=== PATIENT | female | born 1955 | race Caucasian/White ===

== ENCOUNTER 2020-07-21 09:26 | Emergency (ER) | payer MEDICARE ==
[2020-07-21 10:22] LABS: #Basophils 0.1 thou/uL (0.0-0.2); #Eosinphils 0.1 thou/uL (0.0-0.7); #Lymphocytes 2.2 thou/uL (1.20-3.40); #Monocytes 0.6 thou/uL (0.11-0.59); #Neutrophils 4.9 thou/uL (1.40-6.50); %Eosinophils 1.4 % (0.0-10.0); %Monocytes 7.5 % (0.0-10.0); %Neutrophils 62.1 % (42.0-75.0); Hemoglobin 12.8 g/dL (12.0-16.0); Mean Corpuscular Hemoglobin 30.8 pg (27.0-31.0); Mean Corpuscular Volume 93.3 fL (78.0-98.0); Mean Platelet Volume 8.1 fL (7.4-10.4); Platelet Count 202 thou/uL (130-400); RBC Distribution Width 11.3 % (11.5-14.5); Red Blood Cell (RBC) Count 4.15 mill/uL (4.20-5.40); White Blood Cell (WBC) Count 7.8 thou/uL (4.8-10.8)
[2020-07-21 10:47] LABS: ALT (SGPT) 47 U/L (8-55); AST (SGOT) 31 U/L (5-34); Acetaminophen Less than 6.0 mcg/mL (10.0-30.0); Alcohol 18 mg/dL (Less than 10); Alkaline Phosphatase 72 U/L (40-110); Anion Gap 16 mmol/L (10-20); BUN (Urea Nitrogen) 9 mg/dL (9.8-20.1); Bilirubin, Total 0.3 mg/dL (0.2-1.2); CK (CPK) 61 U/L (29-168); Calc. Creatinine Clearance 0 mL/min (70-130); Calcium 9.2 mg/dL (7.8-10.44); Carbon Dioxide 22 mmol/L (23-31); Chloride 105 mmol/L (98-107); Globulin 3.4 g/dL (2.4-3.5); Glucose 88 mg/dL (80-115); Potassium 3.3 mmol/L (3.5-5.1); Protein, Total 7.4 g/dL (6.0-8.3); Salicylate Less than 8.0 mg/dL (15.0-30.0); Sodium 140 mmol/L (136-145)
--- NOTE | 2020-07-21 10:47 | CT ---
EXAM: Brain CTWithout contrast: HISTORY: Altered mental status COMPARISON: None FINDINGS: No focal mass or midline shift. No intra or extra-axial hemorrhage. Sinuses and mastoids are clear of acute process. IMPRESSION: No mass or bleed or other significant acute intracranial process.
[2020-07-21 11:10] LABS: Amphetamine Not Detected (NotDetected); Barbiturates Screen Not Detected (NotDetected); Benzodiazepine Screen Not Detected (NotDetected); Cocaine Metabolite Screen Not Detected (NotDetected); Medtox Control Line Valid? VALID (VALID); Medtox Reader # READER 4; Methadone Not Detected (NotDetected); Methamphetamine Not Detected (NotDetected); Opiate Screen Not Detected (NotDetected); Oxycodone Screen Not Detected (NotDetected); Phencyclidine (PCP) Not Detected (NotDetected); THC/Cannabinoid Screen Not Detected (NotDetected); Tricyclic Screen Not Detected (NotDetected)
[2020-07-21 11:11] LABS: Bilirubin Negative (Negative); Blood, Urine Negative (Negative); Clarity Clear (Clear); Glucose, Urine (Dipstick) Normal (Negative); Ketone, Urine Negative (Negative); Leukocyte Negative Leu/uL (Negative); Nitrite Negative (Negative); Protein, Urine (Dipstick) Negative (Neg-Trace); Specific Gravity, Urine 1.011 (1.002-1.036); Urobilinogen Normal mg/dL (Less than 2); pH, Urine 5.5 (5.0-9.0)
[2020-07-21] MEDS ORDERED: Nicotine 14 MG PATCH TOP SCH (12:00)
[2020-07-21] MEDS ORDERED: Nicotine 14 MG PATCH ONE ×2 (12:31→12:32)
== END 2020-07-21 18:35 ==
LOC: ERS 09:26
DX: F23 Brief psychotic disorder (principal); J44.9 Chronic obstructive pulmonary disease, unspecified; F17.210 Nicotine dependence, cigarettes, uncomplicated; Z79.899 Other long term (current) drug therapy
CPT/HCPCS: 36415; 70450; 80053; 80306; 80307; 81003; 82550; 84443; 85025; 93005

== ENCOUNTER 2020-10-15 22:33 | Emergency (ER) | payer MEDICARE ==
[2020-10-15 23:38] LABS: #Basophils 0.1 thou/uL (0.0-0.2); #Eosinphils 0.3 thou/uL (0.0-0.7); #Lymphocytes 2.4 thou/uL (1.20-3.40); #Monocytes 0.5 thou/uL (0.11-0.59); #Neutrophils 1.7 thou/uL (1.40-6.50); %Basophils 1.5 % (0.0-1.0); %Eosinophils 5.2 % (0.0-10.0); %Monocytes 9.8 % (0.0-10.0); %Neutrophils 34.5 % (42.0-75.0); Hemoglobin 12.7 g/dL (12.0-16.0); Mean Corpuscular HGB CONC 32.7 g/dL (32.0-36.0); Mean Corpuscular Hemoglobin 31.5 pg (27.0-31.0); Mean Corpuscular Volume 96.4 fL (78.0-98.0); Mean Platelet Volume 7.1 fL (7.4-10.4); Platelet Count 179 thou/uL (130-400); RBC Distribution Width 11.5 % (11.5-14.5); Red Blood Cell (RBC) Count 4.04 mill/uL (4.20-5.40); White Blood Cell (WBC) Count 4.9 thou/uL (4.8-10.8)
[2020-10-15 23:59] LABS: ALT (SGPT) 74 U/L (8-55); AST (SGOT) 54 U/L (5-34); Acetaminophen Less than 6.0 mcg/mL (10.0-30.0); Albumin 3.8 g/dL (3.4-4.8); Alcohol 135 mg/dL (Less than 10); Alkaline Phosphatase 55 U/L (40-110); Anion Gap 12 mmol/L (10-20); BUN (Urea Nitrogen) 8 mg/dL (9.8-20.1); Bilirubin, Total 0.3 mg/dL (0.2-1.2); Calc. Creatinine Clearance 0 mL/min (70-130); Calcium 8.3 mg/dL (7.8-10.44); Carbon Dioxide 27 mmol/L (23-31); Chloride 106 mmol/L (98-107); Globulin 2.8 g/dL (2.4-3.5); Glucose 88 mg/dL (80-115); Potassium 3.7 mmol/L (3.5-5.1); Protein, Total 6.6 g/dL (5.8-8.1); Salicylate Less than 8.0 mg/dL (15.0-30.0); Sodium 141 mmol/L (136-145)
== END 2020-10-16 02:27 | disposition home or self-care (01) ==
LOC: ERS 22:33
DX: F10.129 Alcohol abuse with intoxication, unspecified (principal); J44.9 Chronic obstructive pulmonary disease, unspecified; F17.210 Nicotine dependence, cigarettes, uncomplicated; Z79.899 Other long term (current) drug therapy
CPT/HCPCS: 36415; 80053; 80307; 85025; 99285

== ENCOUNTER 2024-05-30 17:49 | Inpatient (IN) | payer MEDICARE ==
[2024-05-30] MEDS ORDERED: Proparacaine 0.5% Opth 15 ML BOT ONE (18:34)
[2024-05-30] MEDS ORDERED: Fluorescein Opthalmic Strip ONE (18:34)
[2024-05-30] MEDS ORDERED: Sodium Chloride 0.9% 100 ML ONE (18:34)
[2024-05-30] MEDS ORDERED: Cefepime 2 GM VIAL ONE (18:34)
[2024-05-30] MEDS ORDERED: Vancomycin 1 GM/200 ML (FROZEN) BAG ONE (19:02)
[2024-05-30 19:46] LABS: #Basophils 0.07 10x3/uL (0.0-0.2); %Eosinophils 0.9 % (0.0-10.0); %Lymphocytes 23.9 % (21.0-51.0); %Monocytes 9.9 % (0.0-10.0); %Neutrophils 63.9 % (42.0-75.0); Hematocrit 39.3 % (36.0-47.0); Mean Corpuscular HGB CONC 35.6 g/dL (32.0-36.0); Mean Corpuscular Hemoglobin 31.5 pg (27.0-31.0); Mean Corpuscular Volume 88.3 fL (78.0-98.0); Mean Platelet Volume 9.2 fL (7.4-10.4); Platelet Count 251 10x3/uL (130-400); RBC Distribution Width 13.8 % (11.5-14.5); Red Blood Cell (RBC) Count 4.45 mill/uL (4.20-5.40)
[2024-05-30 19:56] LABS: ALT (SGPT) 21 U/L (8-55); AST (SGOT) 19 U/L (5-34); Albumin 3.3 g/dL (3.4-4.8); Alkaline Phosphatase 52 U/L (40-110); Anion Gap 12 mmol/L (10-20); BUN (Urea Nitrogen) 5 mg/dL (9.8-20.1); Bilirubin, Total 0.4 mg/dL (0.2-1.2); CK (CPK) 31 U/L (29-168); Calc. Creatinine Clearance 0 mL/min (70-130); Calcium 9.1 mg/dL (7.8-10.44); Carbon Dioxide 33 mmol/L (23-31); Chloride 84 mmol/L (98-107); Estimated GFR 100; Globulin 2.7 g/dL (2.4-3.5); Glucose 95 mg/dL (80-115); Sodium 126 mmol/L (136-145)
[2024-05-30 20:00] LABS: Troponin I 0.012 ng/mL (< 0.028)
[2024-05-30] MEDS ORDERED: Ondansetron ODT 4 MG TAB PO PRN (20:30)
[2024-05-30] MEDS ORDERED: Calcium Carbonate 500 MG ChewTAB PO PRN (20:30)
[2024-05-30] MEDS ORDERED: Senokot S 8.6-50 MG TAB PO PRN (20:30)
[2024-05-30] MEDS: Potassium Bicarbonate/Cit Ac 20 MEQ TAB PO SCH (22:54)
[2024-05-30] MEDS: Sodium Chloride 0.9% 1,000 ML IV SCH (22:54)
[2024-05-30] MEDS ORDERED: Lorazepam 1 MG TAB PO PRN (23:04)
[2024-05-30] MEDS: Potassium Chloride 20 MEQ TAB PO SCH (23:08)
[2024-05-30] MEDS ORDERED: Electrolyte Replacement Protocol 1 EACH FS SCH (23:15)
[2024-05-30 23:37] VITALS: BMI 19.5
[2024-05-31] MEDS: Thiamine HCl 200 MG/2 ML VIAL SLOW IVP SCH (00:10)
[2024-05-31] MEDS: Sodium Chloride 0.9% 1,000 ML IV SCH ×2 (00:10→14:37)
[2024-05-31] MEDS: Acetaminophen 325 MG TAB PO PRN (00:12)
[2024-05-31 05:02] LABS: Amphetamine Not Detected (NotDetected); Barbiturates Screen Not Detected (NotDetected); Benzodiazepine Screen Not Detected (NotDetected); Cocaine Metabolite Screen Not Detected (NotDetected); Methadone Not Detected (NotDetected); Methamphetamine Not Detected (NotDetected); Opiate Screen Not Detected (NotDetected); Oxycodone Screen Not Detected (NotDetected); Phencyclidine (PCP) Not Detected (NotDetected); THC/Cannabinoid Screen Detected (NotDetected); Tricyclic Screen Not Detected (NotDetected)
[2024-05-31 05:53] LABS: Bilirubin Negative (Negative); Blood, Urine Negative (Negative); Clarity Clear (Clear); Glucose, Urine (Dipstick) Normal (Negative); Ketone, Urine 10 mg/dL (Negative); Leukocyte 500 Leu/uL (Negative); Nitrite Negative (Negative); Protein, Urine (Dipstick) 10 mg/dL (Neg-Trace); RBC/HPF 0-3 HPF (0-3); Specific Gravity, Urine 1.004 (1.002-1.036); Squamous Epithelial 0-3 HPF (0-3); Urobilinogen Normal mg/dL (Less than 2); WBC/HPF 21-50 HPF (0-3)
[2024-05-31 06:08] LABS: Bacteria/HPF 1+ HPF (None Seen)
[2024-05-31 07:19] LABS: #Basophils 0.06 10x3/uL (0.0-0.2); %Basophils 1.3 % (0.0-1.0); %Eosinophils 1.5 % (0.0-10.0); %Lymphocytes 30.3 % (21.0-51.0); %Monocytes 11.4 % (0.0-10.0); %Neutrophils 55.3 % (42.0-75.0); Hemoglobin 11.5 g/dL (12.0-16.0); Mean Corpuscular HGB CONC 34.8 g/dL (32.0-36.0); Mean Corpuscular Hemoglobin 31.3 pg (27.0-31.0); Mean Corpuscular Volume 89.9 fL (78.0-98.0); Mean Platelet Volume 8.8 fL (7.4-10.4); Platelet Count 204 10x3/uL (130-400); RBC Distribution Width 14.2 % (11.5-14.5); Red Blood Cell (RBC) Count 3.67 mill/uL (4.20-5.40)
[2024-05-31 07:41] LABS: Phosphorus 2.6 mg/dL (2.3-4.7); Vancomycin, Random 3.6 ug/mL (See Comment)
[2024-05-31] MEDS ORDERED: Vancomycin 1 GM in Premix 1 BAG IVPB SCH (08:00)
[2024-05-31 08:27] LABS: ALT (SGPT) 15 U/L (8-55); AST (SGOT) 16 U/L (5-34); Albumin 2.5 g/dL (3.4-4.8); Alkaline Phosphatase 39 U/L (40-110); Anion Gap 12 mmol/L (10-20); BUN (Urea Nitrogen) 5 mg/dL (9.8-20.1); Bilirubin, Total 0.4 mg/dL (0.2-1.2); Calc. Creatinine Clearance 97 mL/min (70-130); Calcium 7.7 mg/dL (7.8-10.44); Carbon Dioxide 28 mmol/L (23-31); Chloride 92 mmol/L (98-107); Estimated GFR 107; Glucose 70 mg/dL (80-115); Magnesium 1.7 mg/dL (1.6-2.6); Potassium 2.9 mmol/L (3.5-5.1); Protein, Total 4.5 g/dL (5.8-8.1); Sodium 129 mmol/L (136-145)
[2024-05-31] MEDS: Vancomycin 1 GM in Premix 1 BAG IVPB SCH (10:06)
[2024-05-31] MEDS: Enoxaparin 40 MG (0.4 mL) SYRINGE SC SCH (10:07)
[2024-05-31] MEDS: Folic Acid 1 MG TAB PO SCH (10:07)
[2024-05-31] MEDS: Multivit, Therapeutic 1 TAB PO SCH (10:07)
[2024-05-31] MEDS: Pantoprazole DR 40 MG TAB PO SCH (10:07)
[2024-05-31] MEDS: Potassium Chloride 20 MEQ TAB PO SCH (10:11)
[2024-05-31] MEDS ORDERED: Mupirocin 2% Ointment 22 GM Tube TOP PRN (10:20)
[2024-05-31] MEDS: Magnesium 2 GM/50 ML(in water) 2 GM in Premix 1 BAG IVPB SCH (11:37)
[2024-05-31 13:56] VITALS: BMI 19.5
[2024-05-31] MEDS: Vancomycin HCl 750 MG in Sodium Chloride 0.9% 250 ML 250 ML IVPB SCH (16:17)
[2024-05-31] MEDS ORDERED: Lorazepam 1 MG TAB PO PRN (23:04)
[2024-06-01 05:00] LABS: #Basophils 0.09 10x3/uL (0.0-0.2); %Eosinophils 2.2 % (0.0-10.0); %Lymphocytes 41.1 % (21.0-51.0); %Monocytes 10.9 % (0.0-10.0); %Neutrophils 43.6 % (42.0-75.0); Hematocrit 34.1 % (36.0-47.0); Hemoglobin 11.8 g/dL (12.0-16.0); Mean Corpuscular HGB CONC 34.6 g/dL (32.0-36.0); Mean Corpuscular Hemoglobin 31.6 pg (27.0-31.0); Mean Corpuscular Volume 91.2 fL (78.0-98.0); Mean Platelet Volume 9.4 fL (7.4-10.4); Platelet Count 207 10x3/uL (130-400); RBC Distribution Width 14.6 % (11.5-14.5); Red Blood Cell (RBC) Count 3.74 mill/uL (4.20-5.40)
[2024-06-01 05:15] LABS: ALT (SGPT) 16 U/L (8-55); AST (SGOT) 17 U/L (5-34); Albumin 2.5 g/dL (3.4-4.8); Alkaline Phosphatase 46 U/L (40-110); Anion Gap 9 mmol/L (10-20); BUN (Urea Nitrogen) Less than 4 mg/dL (9.8-20.1); Bilirubin, Total 0.3 mg/dL (0.2-1.2); Calc. Creatinine Clearance 94 mL/min (70-130); Calcium 7.4 mg/dL (7.8-10.44); Carbon Dioxide 26 mmol/L (23-31); Chloride 98 mmol/L (98-107); Estimated GFR 106; Globulin 2.2 g/dL (2.4-3.5); Glucose 71 mg/dL (80-115); Potassium 3.6 mmol/L (3.5-5.1); Protein, Total 4.7 g/dL (5.8-8.1); Sodium 129 mmol/L (136-145)
[2024-06-01] MEDS: Ondansetron PF 4 MG/2 ML Vial IVP PRN (08:35)
[2024-06-01] MEDS: Magnesium 2 GM/50 ML(in water) 2 GM in Premix 1 BAG IVPB SCH (08:37)
[2024-06-01] MEDS: Sodium Chloride 1 GM TAB PO SCH (08:47)
[2024-06-01] MEDS: Nicotine 21 MG PATCH TD SCH (08:48)
[2024-06-01] MEDS: Potassium Chloride 20 MEQ TAB PO SCH (08:48)
[2024-06-01] MEDS: Aspirin 325 mg Enteric Coated Tablet PO SCH (09:50)
[2024-06-01] MEDS: Lorazepam 2 MG/ML VIAL SLOW IVP SCH (09:50)
[2024-06-01] MEDS: Benzonatate 100 MG CAP PO SCH (15:44)
[2024-06-01] MEDS: traZODone HCl 50 MG TAB PO PRN (20:13)
[2024-06-02 05:19] LABS: Vancomycin, Random 25.1 ug/mL (See Comment)
[2024-06-02] MEDS: Aspirin 81 mg Enteric Coated Tablet PO SCH (09:38)
[2024-06-02] MEDS: Potassium Chloride 20 MEQ TAB PO SCH (13:15)
[2024-06-02] MEDS: Lorazepam 1 MG TAB PO PRN (19:52)
[2024-06-02] MEDS: Vancomycin HCl 750 MG in Sodium Chloride 0.9% 250 ML 250 ML IVPB SCH (19:53)
[2024-06-02] MEDS: Thiamine 100 MG TAB PO SCH (19:54)
[2024-06-02] MEDS ORDERED: Lorazepam 0.5 MG TAB PO PRN (23:04)
[2024-06-03 01:29] VITALS: TEMP 98.1
[2024-06-03 05:17] LABS: #Basophils 0.06 10x3/uL (0.0-0.2); %Basophils 1.5 % (0.0-1.0); %Lymphocytes 49.2 % (21.0-51.0); %Monocytes 13.4 % (0.0-10.0); %Neutrophils 31.6 % (42.0-75.0); Hematocrit 32.6 % (36.0-47.0); Hemoglobin 10.7 g/dL (12.0-16.0); Mean Corpuscular HGB CONC 32.8 g/dL (32.0-36.0); Mean Corpuscular Hemoglobin 31.2 pg (27.0-31.0); Mean Platelet Volume 9.2 fL (7.4-10.4); Platelet Count 191 10x3/uL (130-400); RBC Distribution Width 15.4 % (11.5-14.5); Red Blood Cell (RBC) Count 3.43 mill/uL (4.20-5.40)
[2024-06-03 05:44] LABS: Anion Gap 9 mmol/L (10-20); BUN (Urea Nitrogen) 5 mg/dL (9.8-20.1); Calc. Creatinine Clearance 99 mL/min (70-130); Carbon Dioxide 26 mmol/L (23-31); Chloride 104 mmol/L (98-107); Estimated GFR 107; Glucose 74 mg/dL (80-115); Potassium 3.5 mmol/L (3.5-5.1); Sodium 135 mmol/L (136-145)
[2024-06-03 06:06] LABS: Vancomycin, Random 17.5 ug/mL (See Comment)
[2024-06-03 06:31] LABS: Calcium 7.5 mg/dL (7.8-10.44); Magnesium 1.7 mg/dL (1.6-2.6)
[2024-06-03] MEDS ORDERED: Electrolyte Replacement Protocol FS PRN (08:00)
[2024-06-03] MEDS: Potassium Chloride 20 MEQ TAB PO SCH ×2 (08:48→11:08)
[2024-06-03] MEDS: Magnesium 2 GM/50 ML(in water) 2 GM in Premix 1 BAG IVPB SCH ×2 (08:48→11:09)
[2024-06-03 09:06] VITALS: BP 124/83
[2024-06-03 14:30] LABS: Potassium 4.4 mmol/L (3.5-5.1)
[2024-06-03] MEDS ORDERED: Doxycycline 100 MG CAP PO SCH (21:00)
== END 2024-06-03 14:30 | disposition home or self-care (01) | DRG 602 ==
LOC: ERS 17:49 → SUATTDRO 17:49 → T4-B 20:23
PROVIDERS: ADMIT Internal Medicine; ATTEND Internal Medicine
DX: L03.116 Cellulitis of left lower limb (principal); G93.41 Metabolic encephalopathy; E87.1 Hypo-osmolality and hyponatremia; F10.10 Alcohol abuse, uncomplicated; F39 Unspecified mood [affective] disorder; E87.6 Hypokalemia; R53.1 Weakness; F17.210 Nicotine dependence, cigarettes, uncomplicated; Z71.6 Tobacco abuse counseling
CPT/HCPCS: 36415; 70450; 71045; 80048; 80053; 80202; 80306; 80307; 81001; 82550; 83605; 83735; 83880; 83930; 83935; 84100; 84443; 84484; 85025; 87040; 87081; 93005; 96365; 96375; 97139; J0692; J1650; J2060; J2405; J3370; J3370-JW; J3411; J3475; J7030; J7050